=== PATIENT | female | born 1970 | race Caucasian/White ===

== ENCOUNTER 2017-10-09 08:05 | Outpatient (CLI) | payer OTHER | END 2017-10-09 08:14 | disposition home or self-care (01) | LOC: SONOGRAMA 08:05 | DX: E04.1 Nontoxic single thyroid nodule (principal) ==

== ENCOUNTER 2020-07-22 08:01 | Outpatient (CLI) | payer OTHER | END 2020-07-22 08:07 | disposition home or self-care (01) | LOC: SONOGRAMA 08:01 | PROVIDERS: ATTEND Pathology Anatomic Pathology & Clinical Pathology | DX: E04.1 Nontoxic single thyroid nodule (principal) ==